=== PATIENT | female | born 1990 | race Caucasian/White ===

== ENCOUNTER → 2017-03-08 | Outpatient (CLI) | payer MEDICAID ==
[2017-03-08 14:26] LABS: CH 31.6; CHCM 34.5; HDW 2.35; HGB 12.8 gm/dL (11.4-16.0); MCHC 33.7 g/dL (31.0-37.0); MCV 92.2 fL (80.0-100.0); Mean Platelet Volume 6.9; RBC 4.12 m/uL (3.80-5.40); WBC 8.9 k/uL (3.8-10.6)
[2017-03-08 14:35] LABS: Glucose 84 mg/dL (74-99); Non-African American GFR(MDRD) >60 (>60 ml/min/1.73 sqM)
[2017-03-08 20:38] LABS: Treponemal Ab Non-Reactive (Non-Reactive)
[2017-03-09 05:01] LABS: Toxoplasma Antibody (IgG) <3.0 IU/mL (<7.2)
== END | disposition home or self-care (01) ==
LOC: LABWHC1 13:52
PROVIDERS: ATTEND Obstetrics & Gynecology
DX: O26.811 Pregnancy related exhaustion and fatigue, first trimester (principal); Z3A.00 Weeks of gestation of pregnancy not specified
CPT/HCPCS: 36415; 82565; 82947; 85027; 86762; 86777; 86778; 86780; 86850; 86900; 86901; 87340; 87390

== ENCOUNTER → 2017-07-04 | Outpatient (CLI) | payer MEDICAID ==
[2017-07-04 10:25] LABS: HCT 38.5 % (34.0-46.0); HGB 12.6 gm/dL (11.4-16.0); MCH 30.3 pg (25.0-35.0); MCHC 32.6 g/dL (31.0-37.0); Mean Platelet Volume 6.7; Platelet Count 287 k/uL (150-450); RBC 4.14 m/uL (3.80-5.40); WBC 12.4 k/uL (3.8-10.6)
== END | disposition home or self-care (01) ==
LOC: LABWHC1 08:52
PROVIDERS: ATTEND Obstetrics & Gynecology
DX: Z34.82 Encounter for supervision of other normal pregnancy, second trimester (principal); Z3A.00 Weeks of gestation of pregnancy not specified
CPT/HCPCS: 36415; 82950; 85027

== ENCOUNTER → 2017-08-15 | Outpatient (CLI) | payer MEDICAID ==
--- NOTE | 2017-08-15 09:33 | US ---
EXAMINATION TYPE: US OB anatomy transabd DATE OF EXAM: 08/15/2017 COMPARISON: US HISTORY: O36.63x0 Large for dates, third trimester TECHNIQUE: Transabdominal (TA) EXAM MEASUREMENTS: GESTATIONAL AGE / DATING Physician Established: (32 weeks/5 days) EDC: 10/05/2017 Dates by LMP: uncertain Dates by First Scan: (33 weeks/0 days) EDC: 10/03/2017 Dates by Current Scan for: (33 weeks/6 days) EDC: 09/27/2017 SURVEY IUP: Single PLACENTA: Posterior PREVIA: No previa JADE: 10.4 cm Normal CERVICAL LENGTH (transabdominal: norm > 3.0cm): 3.4 cm BIOMETRY PRESENTATION: Vertex BPD: 8.6 cm 31 weeks / 5 days HC: 30.4 cm 33 weeks / 5 days AC: 31.1 cm 35 weeks / 0 days FL: 6.6 cm 34 weeks / 0 days ESTIMATED WEIGHT IN GRAMS: 2460 grams ESTIMATED WEIGHT IN LBS/OZ: 5 lbs. 7 oz. WEIGHT PERCENTAGE BASED ON ESTABLISHED DATE: 91 % HC/AC: 0.98 Normal FL/AC: 21.2 Normal HEART RATE: 135 bpm RHYTHM: Normal ANATOMY SEEN (within normal limits): * Lateral Vent (< 1 cm) 0.8 cm * Cisterna Magna (< 1.1 cm) 0.8 cm * Cerebellum (varies with age) 3.9 cm Four Chamber Heart Outflow tracts: LVOT/RVOT Stomach Situs Nose / Lips Diaphragm Kidneys (bilateral) Bladder Three Vessel Cord Longitudinal Spine Transverse Spine Arms (bilateral) Legs (bilateral) ANATOMY NOT SEEN: * Nuchal Fold (< 0.6 cm) Choroid Plexus (bilateral) Midline Falx Cavus Septi Pellucidi Cord Insert growth according to dates, limited anatomy due to advanced gestational age and position. IMPRESSION: Single live intrauterine with a sonographic age of 33 weeks and 6 days with estimated date of delivery of 09/27/2017. Overall dates are concordant with menstrual age given the third trimester ul trasound. Growth is also appropriate according to dates and measured at 91%. Some anatomy was not juan c ntified due to advanced gestational age and positioning (nuchal fold, choroid plexus, midline f enmanuel, cavum septum lucidum, and cord insertion).
== END | disposition home or self-care (01) ==
LOC: RADUSWWP 08:39
PROVIDERS: ATTEND Obstetrics & Gynecology
DX: O36.63X0 Maternal care for excessive fetal growth, third trimester, not applicable or unspecified (principal); Z3A.33 33 weeks gestation of pregnancy
CPT/HCPCS: 76811

== ENCOUNTER 2017-09-19 12:05 | Outpatient (CLI) | payer MEDICAID ==
[2017-09-19 12:42] LABS: Appearance,Urine Clear (Clear); Bacteria,Urine Occasional /hpf; Bilirubin,Urine Negative (Negative); Blood,Urine Negative (Negative); Color,Urine Yellow; Glucose,Urine (UA) Negative (Negative); Ketones,Urine Negative (Negative); Leukocyte Esterase,Urine Small (Negative); Mucus,Urine Rare /hpf; Nitrite,Urine Negative (Negative); PH, Urine 7.5 (5.0-8.0); Protein,Urine Trace (Negative); Specific Gravity,Urine 1.015 (1.001-1.035); Squamous Epithelial Cell,Urine 3 /hpf (0-4); Urobilinogen,Urine <2.0 mg/dL (<2.0); WBC,Urine 2 /hpf (0-5)
[2017-09-19 12:54] LABS: ALT 27 U/L (9-52); AST 23 U/L (14-36); Albumin 3.4 g/dL (3.5-5.0); Alkaline Phosphatase 125 U/L (38-126); Bilirubin, Delta 0.4 mg/dL (0.0-0.2); Bilirubin,Unconjugated 0.1 mg/dL (0.0-1.1); Blood Urea Nitrogen 9 mg/dL (7-17); LDH 439 U/L (313-618); Total Bilirubin 0.5 mg/dL (0.2-1.3); Total Protein 5.9 g/dL (6.3-8.2); Uric Acid 3.8 mg/dL (3.7-7.4)
[2017-09-19 13:09] LABS: Basophils % (A) 0 %; Eosinophils # (A) 0.1 k/uL (0-0.7); Eosinophils % (A) 1 %; HCT 36.7 % (34.0-46.0); HGB 12.8 gm/dL (11.4-16.0); Lymphocytes # (A) 1.5 k/uL (1.0-4.8); Lymphocytes % (A) 12 %; MCHC 34.7 g/dL (31.0-37.0); MCV 89.1 fL (80.0-100.0); Monocytes # (A) 0.7 k/uL (0-1.0); Monocytes % (A) 5 %; Neutrophils # (A) 9.8 k/uL (1.3-7.7); Neutrophils % (A) 80 %; Platelet Count 292 k/uL (150-450); RBC 4.12 m/uL (3.80-5.40); WBC 12.2 k/uL (3.8-10.6)
--- NOTE | 2017-09-19 17:32 | P.PN ---
Progress Note - Text Progress Note Date: 09/19/17 Heather was sent over from my office with a pelvic blood pressure 146/82. She last week she was noted and slight elevation in blood pressure as well. Preeclamptic labs were ordered. She did check her blood pressure through the week and noted that it was normal. In labor and delivery all her blood pressures are normal in the 120/70 range. She has no elevations in blood pressure at all. Preeclamptic labs were all also normal. Trace protein only. She had a long discussion about options for care, I did explain recommendation for induction of labor as she is past 37 weeks and there is some suspicion for gestational hypertension although it is difficult to say for certain if she really has gestational hypertension since all of her other blood pressures of been normal other than those to random samples. It is also noted that the random samples were with the same cuff in my office and was every other cuff her blood pressures are significantly lower. At this time she declines induction of labor will be aggressively following her with NSTs and blood pressure checks every 2-3 days moving forward, I think this is probably a reasonable option since she is very knowledgeable in the area and understands both the risks and benefits of moving forward and not getting delivered today. I did do a physical exam and it is noted that her deep tendon reflexes are +2 out of 4 she denies any headache no epigastric pain no visual changes she really has no peripheral or central edema. There is no real sign or symptoms for preeclampsia at all and with the preponderance of her blood pressures being normal it is very difficult to say with any certainty that she does have gestational hypertension. Assessment intrauterine with isolated elevation blood pressure. Plan very close follow-up with blood pressures and NSTs in the next 2-3 days with the expectation that if there is any more elevations in her blood pressure that we will plan induction of labor.
== END 2017-09-19 13:27 | disposition home or self-care (01) ==
LOC: FBPOP 12:05
PROVIDERS: ATTEND Obstetrics & Gynecology
DX: O13.3 Gestational [pregnancy-induced] hypertension without significant proteinuria, third trimester (principal); Z3A.37 37 weeks gestation of pregnancy
CPT/HCPCS: 80076; 81001; 82565; 83615; 84520; 84550; 85025; 99215

== ENCOUNTER 2017-09-21 12:19 | Outpatient (CLI) | payer MEDICAID ==
[2017-09-21 13:32] VITALS: BP 117/82; PULSE 75; RESP 16; TEMP 98.4
--- NOTE | 2017-09-30 08:01 | P.MSEPDOC ---
Presenting Problems - Arrival Data Date of Arrival on Unit: 09/21/17 Time of Arrival on Unit: 12:28 Mode of Transport: Ambulatory - Complaint OB-Reason for Admission/Chief Complaint: Other Comment: pt asked to return to l/d today to have blood pressures checked a dn nst Medical History - Information : 1 Para: 0 Term: 0 : 0 Abortions: Spontaneous or Elective: 0 Number of Living Children: 0 - Gestational Age Gestational Age by DAVID (wks/days): 38 Weeks and 0 Days - History Complications: No Care Review of Systems - Review of Systems Constitutional: No problems Breast: No problems ENT: No problems Cardiovascular: No problems Respiratory: No problems Gastrointestinal: No problems Genitourinary: No problems Musculoskeletal: No problems Neurological: No problems Skin: No problems Vital Signs - Temperature Temperature: 98.4 F Temperature Source: Oral - Pulse Right Brachial Pulse Rate: 75 Pulse Assessment Method: Automatic Cuff - Respirations Respiratory Rate: 16 Oxygen Delivery Method: Room Air - Blood Pressure Right Arm Blood Pressure: 117/82 Blood Pressure Mean: 93 Blood Pressure Source: Automatic Cuff Medical Screen Scoring (Pre) - Cervical Exam Dilation: Exam Deferred Effacement: Exam Deferred Membranes: Intact - Uterine Contractions Frequency: > 5 minutes apart = 1, > or = 36 weeks =2 Duration: > 40 seconds = 2 Intensity: N/A - Maternal Vital Signs Maternal Temperature: N/A Maternal Blood Pressure: N/A Signs of Preeclampsia: N/A - Pain Assessment Pain Scale Used: Numeric (1 - 10) Pain Intensity: 0 Pain Management Goal: 0 Pain Behavior: Vocalization - Maternal Trauma Maternal Trauma: N/A - Assessment Baseline FHR: 130 Heart Rate - NICHD Category: Category I (Normal) = 0 NST: Reactive Position: N/A Station: N/A - Total Score Total Score (Pre): 5 Physician Notification (Pre) - Physician Notified Physician Notified Date: 09/21/17 Physician Notified Time: 13:20 Spoke With: dr bahman Aguilar Order Received: Yes - Notification Comment Comment: september d/c home Disposition - Disposition OB Disposition: Discharge to home Discharge Date: 09/21/17 Discharge Time: 13:30 I agree with the RN Medical Screening Exam: Yes Risk & Benefit of care provided described in d/c instruction: Yes Diagnosis: GESTATIONAL HTN W/O SIGNIFICANT PROTEINURIA, THIRD TRIMESTER
== END 2017-09-21 13:30 | disposition home or self-care (01) ==
LOC: FBPOP 12:19
PROVIDERS: ATTEND Obstetrics & Gynecology
DX: O13.3 Gestational [pregnancy-induced] hypertension without significant proteinuria, third trimester (principal); Z3A.38 38 weeks gestation of pregnancy
CPT/HCPCS: 59025

== ENCOUNTER 2017-09-22 05:00 | Inpatient (IN) | payer MEDICAID ==
--- NOTE | 2017-09-22 06:09 | P.HPOB ---
History of Present Illness H&P Date: 09/22/17 Chief Complaint: Active labor This is a 26 year female 1 para 0 with an estimated date of confinement of 10/05/2017, estimated gestational age of 38-0/7 weeks, who presents to labor and delivery with complaints of contractions that became stronger early this morning. She denies any rupture of membranes. care has been with Dr. Carvalho and has been uncomplicated per patient. labs: GC/chlamydia-negative Hepatitis B surface antigen-negative nonreactive HIV-nonreactive Rubella-indeterminate Syphilis antibody-negative nonreactive Random glucose-84 Hemoglobin-12.8 Toxoplasma-negative Blood type-A+ Antibody screen-negative Obstetrical ultrasound-normal anatomy One hour Glucola-100 Group B streptococcus-negative Obstetrical history: This is her first . Gynecologic history: No history of sexual transmitted diseases Social history: She is and works full-time in labor and delivery as an RN. Review of Systems Constitutional: Denies chills, Denies fever Eyes: denies blurred vision, denies pain Ears, nose, mouth and throat: Denies headache, Denies sore throat Cardiovascular: Denies chest pain, Denies shortness of breath Respiratory: Denies cough Gastrointestinal: Reports abdominal pain (Contractions) Genitourinary: Reports pelvic pain Musculoskeletal: Reports low back pain Integumentary: Denies pruritus, Denies rash Neurological: Denies numbness, Denies weakness Past Medical History Past Medical History: No Reported History History of Any Multi-Drug Resistant Organisms: None Reported Additional Past Surgical History / Comment(s): LASIK eye surgery, wisdom teeth Past Psychological History: No Psychological Hx Reported Smoking Status: Never smoker Past Drug Use History: None Reported - Past Family History Mother Family Medical History: Hypertension Medications and Allergies Home Medications Medication Instructions Recorded Confirmed Type Pnv No.95/Ferrous Fum/Folic AC 1 each PO DAILY 09/21/17 09/22/17 History [ Multivitamin Tablet] Allergies Allergy/AdvReac Type Severity Reaction Status Date / Time No Known Allergies Allergy Verified 09/22/17 05:08 Exam Osteopathic Statement: *. No significant issues noted on an osteopathic structural exam other than those noted in the History and Physical/Consult. - Vital Signs Vital signs: Intake and Output 09/21/17 09/21/17 09/22/17 14:59 22:59 06:59 Other: Weight 72.575 kg HEENT: Within normal limits Heart: Regular rate and rhythm Lungs: Clear to auscultation bilaterally Abdomen: Cervix on admission: 7 cm with bulging bag heart tones: Reactive Contractions: Every couple minutes Extremities: Negative Homans Assessment and Plan (1) 38 weeks gestation of Current Visit: Yes Status: Acute Code(s): Z3A.38 - 38 WEEKS GESTATION OF SNOMED Code(s): 70974512 Plan: Admission for active labor. Expectant management.
--- NOTE | 2017-09-22 06:11 | P.PROBDLV ---
Vaginal Delivery Note - . Vaginal Delivery Note: The patient progressed fairly quickly to complete dilation and began pushing. Spontaneous rupture membranes with clear fluid noted did occur during pushing. Infant's head came to a crown and then delivered across the perineum followed by the anterior shoulder and a left occiput anterior lie. Nose and mouth were bulb suctioned at the perineum. With one further push, the remainder the easily delivered and was placed on mother's abdomen. There was a loop of cord near the left shoulder but not around the neck. Infant was placed on mother's abdomen and cord was clamped and cut. A viable female infant was noted with scores of 9 at 1 minute and 10 at 5 minutes. Infant weight is pending at this time. Placenta delivered shortly thereafter, intact, with a three-vessel cord. Uterus did contract well after oxytocin was given and uterine massage was carried out. Inspection of the perineum revealed a small first-degree perineal laceration. This area was anesthetized with 1% lidocaine and then sutured with 3-0 Vicryl suture in a running locked fashion. She did have bilateral periurethral abrasions but these were noted to be hemostatic. Estimated blood loss is approximately 100 mL's. Both mother and infant are in stable condition.
[2017-09-22] MEDS ORDERED: TERBUTALINE 1 MG/ML VIAL SQ PRN (06:14)
[2017-09-22] MEDS ORDERED: LIDOCAINE 1% (PF) 10 MG/ML (30 ML SDV) SQ PRN (06:14)
[2017-09-22] MEDS ORDERED: OXYTOCIN 10 UNIT/ML 1 ML VIAL IM PRN (06:14)
[2017-09-22] MEDS ORDERED: METHYLERGONOVINE 0.2 MG/ML 1 ML AMP IM PRN (06:14)
[2017-09-22] MEDS ORDERED: CARBOPROST TROMETHAMINE 250 MCG/ML 1 ML AMP IM PRN (06:14)
[2017-09-22] MEDS ORDERED: LACTATED RINGERS 1,000 ML IV SCH (06:15)
[2017-09-22] MEDS ORDERED: ZOLPIDEM 5 MG TAB PO PRN (06:29)
[2017-09-22] MEDS ORDERED: IBUPROFEN 600 MG TAB PO PRN (06:29)
[2017-09-22] MEDS ORDERED: MEASLES-MUMPS-RUBELLA VACC/PF 12,500 UNIT/0.5 ML VIAL SQ ONE (06:29)
[2017-09-22] MEDS ORDERED: OXYTOCIN 20 UNITS/1000 ML NS 1,000 ML IV SCH (06:29)
[2017-09-22] MEDS ORDERED: WITCH HAZEL 1 EACH MED..PAD TOPICAL PRN (06:29)
[2017-09-22] MEDS ORDERED: diphenhydrAMINE 50 MG/ML 1 ML VIAL IVP PRN ×2 (06:29)
[2017-09-22] MEDS ORDERED: diphenhydrAMINE 50 MG CAP PO PRN (06:29)
[2017-09-22] MEDS ORDERED: SIMETHICONE 80 MG CHEWABLE PO PRN (06:29)
[2017-09-22] MEDS ORDERED: LANOLIN CREAM 5 GM TUBE TOPICAL PRN (06:29)
[2017-09-22] MEDS ORDERED: BENZOCAINE/MENTHOL SPRAY 1 GM/SPRAY AEROSOL TOPICAL PRN (06:29)
[2017-09-22] MEDS ORDERED: HYDROCORTISONE 2.5% RECTAL CREAM 30 GM TUBE RECTAL PRN (06:29)
[2017-09-22] MEDS ORDERED: diphenhydrAMINE 25 MG CAP PO PRN (06:29)
[2017-09-22] MEDS ORDERED: ACETAMINOPHEN TAB 325 MG TAB PO PRN (06:29)
[2017-09-22 07:45] VITALS: BMI 25.8
[2017-09-22 08:26] VITALS: RESP 16
[2017-09-22] MEDS: SENNOSIDES-DOCUSATE SODIUM 1 EACH TAB PO SCH ×2 (09:08→20:56)
--- NOTE | 2017-09-23 07:40 | P.DS ---
Providers Date of admission: 09/22/17 05:00 Expected date of discharge: 09/23/17 Attending physician: Vik Carvalho Primary care physician: Stated None - Discharge Diagnosis(es) (1) 38 weeks gestation of Current Visit: Yes Status: Acute Hospital Course: This is a 26 year old female 1 para 0 at 38 and one sevenths weeks who presented with active labor. She delivered vaginally a viable female on 09/22/2017 with scores of 9 at 1 minute and 10 at 5 minutes and infant weight of 6 pounds 12-1/2 ounces. Her course has been uncomplicated. She is breast-feeding without difficulty. Lochia is decreasing. Pain is well-controlled with ibuprofen. Vital signs are stable. Abdomen is soft with fundus firm and nontender. Extremities show negative Homans. Impression is status post vaginal delivery day #1. Plan is to discharge home today. Routine instructions are given. She will use [id number] ibuprofen as needed. She has a breast pump at home. She is advised to follow up with Dr. Carvalho in the office in 6 weeks. She is advised to call the office if she has any further questions or concerns prior to her appointment time. Procedures: Spontaneous vaginal delivery of a viable female infant on 09/22/2017 Patient Condition at Discharge: Stable Plan - Discharge Summary New Discharge Prescriptions: Continue Pnv No.95/Ferrous Fum/Folic AC [ Multivitamin Tablet] 1 each PO DAILY Discharge Medication List Pnv No.95/Ferrous Fum/Folic AC [ Multivitamin Tablet] 1 each PO DAILY [History] Follow up Appointment(s)/Referral(s): Vik Carvalho DO [Doctor of Osteopathic Medicine] - 6 Weeks Activity/Diet/Wound Care/Special Instructions: Instructions 1. Do not begin any exercise program for 3 weeks. 2. Do not resume sexual relations for 3 weeks or longer if uncomfortable. 3. You may take tub baths or showers at any time. 4. You may use tampons if desired after 3 weeks. 5. Keep the area of episiotomy (stitches) clean and dry. 6. If you are not nursing, wear a good fitting, supportive bra during the day and limit fluid intake for at least 1 week to prevent breast engorgement. 7. Call the office, [phone], within the next week to make appointment for your 6 week checkup if it has not already been made. 8. Report any of the following occurrences to the doctor promptly: a. Heavy, excessive bleeding b. Chills, fever c. Burning or frequency of urination d. Pain or redness and breasts if nursing e. Increasing pain or swelling in episiotomy (stitches). In addition to the above instructions, the following additional should be followed: 1. No heavy lifting or straining (exercising) until after 6 week checkup. 2. Keep abdominal incision clean and dry: You may wear a dressing if more comfortable. 3. Make office appointment for 10 days after going home or as instructed by her doctor. Discharge Disposition: HOME SELF-CARE
[2017-09-23 07:48] LABS: Basophils % (A) 0 %; Eosinophils # (A) 0.1 k/uL (0-0.7); Eosinophils % (A) 1 %; HCT 34.4 % (34.0-46.0); HGB 11.7 gm/dL (11.4-16.0); Lymphocytes # (A) 2.8 k/uL (1.0-4.8); Lymphocytes % (A) 24 %; MCH 30.5 pg (25.0-35.0); MCHC 33.9 g/dL (31.0-37.0); MCV 90.1 fL (80.0-100.0); Mean Platelet Volume 7.5; Monocytes # (A) 0.7 k/uL (0-1.0); Monocytes % (A) 6 %; Neutrophils # (A) 7.9 k/uL (1.3-7.7); Neutrophils % (A) 67 %; Platelet Count 267 k/uL (150-450); RBC 3.82 m/uL (3.80-5.40); RDW 13.3 % (11.5-15.5); WBC 11.7 k/uL (3.8-10.6)
[2017-09-23 08:05] VITALS: BP 128/78; PULSE 68; TEMP 97.7
[2017-09-23] MEDS: SENNOSIDES-DOCUSATE SODIUM 1 EACH TAB PO SCH (08:12)
== END 2017-09-23 11:24 | disposition home or self-care (01) | DRG 775 ==
LOC: 4FBP 05:00
PROVIDERS: ADMIT Obstetrics & Gynecology; ATTEND Obstetrics & Gynecology
PROC: 10E0XZZ Delivery of Products of Conception, External Approach (ICD-10-PCS; principal; 2017-09-22)
PROC: 0HQ9XZZ Repair Perineum Skin, External Approach (ICD-10-PCS; 2017-09-22)
DX: O70.0 First degree perineal laceration during delivery (principal); Z37.0 Single live birth; Z3A.38 38 weeks gestation of pregnancy; Z82.49 Family history of ischemic heart disease and other diseases of the circulatory system
CPT/HCPCS: 85025; 88307; 90707

== ENCOUNTER → 2018-09-20 | Outpatient (CLI) | payer MEDICAID ==
--- NOTE | 2018-09-20 11:01 | USB ---
Reason for exam: clinical finding. History: Family history of breast cancer in aunt at age 30. Physical Findings: Nurse Summary: Patient complains of right breast lump x 3 weeks, 1cm round nontender nodule right breast retroareolar (nurse mj). US Breast RT Right complete breast ultrasound includes all four quadrants, the retroareolar region and axilla. Finding demonstrates a 0.8 x 0.4 x 0.7cm hypoechoic lesion at 7 o'clock. Suspect a gulactocele. Monitoring recommended. These results were verbally communicated with the patient and result sheet given to the patient on 09/20/18. ASSESSMENT: Probably benign, BI-RAD 3 RECOMMENDATION: Ultrasound of the right breast in 6 months.
== END | disposition home or self-care (01) ==
LOC: RADUSWWP 09:39
PROVIDERS: ATTEND Obstetrics & Gynecology
DX: N63.10 Unspecified lump in the right breast, unspecified quadrant (principal)

== ENCOUNTER → 2019-05-16 | Outpatient (CLI) | payer MEDICAID ==
[2019-05-16 16:42] LABS: HCT 36.9 % (34.0-46.0); HGB 12.7 gm/dL (11.4-16.0); MCH 30.7 pg (25.0-35.0); MCHC 34.3 g/dL (31.0-37.0); MCV 89.4 fL (80.0-100.0); Mean Platelet Volume 6.9; Platelet Count 279 k/uL (150-450); RBC 4.13 m/uL (3.80-5.40); RDW 12.1 % (11.5-15.5); WBC 6.8 k/uL (3.8-10.6)
[2019-05-16 16:55] LABS: African American GFR (CKD) >90 (>60 ml/min/1.73 sqM); Glucose 109 mg/dL (74-99); Non-African American GFR(CKD) >90 (>60 ml/min/1.73 sqM)
[2019-05-17 00:14] LABS: Hepatitis B Surface Antigen Non-Reactive (Non-Reactive)
--- NOTE | 2019-05-17 11:08 | US ---
EXAMINATION TYPE: Transabdominal DATE OF EXAM: 05/16/2019 3:52 PM COMPARISON: NONE CLINICAL HISTORY: Z36 Confirm dates. Confirm Dates EXAM PERFORMED: Transabdominal (TA) EXAM MEASUREMENTS: GESTATIONAL AGE / DATING Physician Established: (9 weeks/3 days) EDC: 12/16/2019 Dates by LMP: (9 weeks/3 days) EDC: 12/16/2019 Dates by First Scan: No prior Dates by Current Scan for: (10 weeks/0 days) EDC: 12/12/2019 MATERNAL ANATOMY Uterus: 9.7 x 7.7 x 9.2 cm Right Ovary: 3.3 x 2.3 x 3.2 cm Left Ovary: 2.3 x 1.1 x 1.7 cm Post CDS / Adnexa: wnl Presence of free fluid: No Presence of corpus luteal cyst: Right Ovary= 2.0 x 1.3 x 2.3 cm Presence of subchorionic bleed: No GESTATION / SURVEY CRL: 3.2 cm (10 weeks/0 days) MSD: wnl Yolk Sac (normal less than 6mm): 3mm Heart Rate: 170 bpm Rhythm: Normal IUP: Viable IUP Nuchal Translucency 10-14wks (normal less than 3mm): 1mm Single, viable IUP, No abnormality visualized at this time IMPRESSION: Single viable intrauterine corresponding to an ultrasound age of 10 weeks 0 days with estim ated date of delivery 12/12/2019
[2019-05-19 04:28] LABS: Toxoplasma Antibody (IgG) <3.0 IU/mL (<7.2); Toxoplasma Antibody (IgM) <3.0 AU/mL (<8.0)
== END | disposition home or self-care (01) ==
LOC: RADUSWWP 15:38
PROVIDERS: ATTEND Obstetrics & Gynecology
DX: Z36.89 Encounter for other specified antenatal screening (principal); Z34.81 Encounter for supervision of other normal pregnancy, first trimester; Z3A.10 10 weeks gestation of pregnancy
CPT/HCPCS: 76801; 76813; 82565; 82947; 85027; 86762; 86777; 86778; 86780; 86850; 86900; 86901; 87340

== ENCOUNTER → 2019-09-15 | Outpatient (CLI) | payer MEDICAID ==
[2019-09-15 10:46] LABS: HCT 34.6 % (34.0-46.0); HGB 11.8 gm/dL (11.4-16.0); MCH 31.8 pg (25.0-35.0); MCV 93.4 fL (80.0-100.0); Platelet Count 235 k/uL (150-450); RBC 3.71 m/uL (3.80-5.40); RDW 13.1 % (11.5-15.5); WBC 9.7 k/uL (3.8-10.6)
== END | disposition home or self-care (01) ==
LOC: LABWHC1 09:33
PROVIDERS: ATTEND Obstetrics & Gynecology
DX: Z34.90 Encounter for supervision of normal pregnancy, unspecified, unspecified trimester (principal)
CPT/HCPCS: 36415; 82950; 85027

== ENCOUNTER → 2019-10-27 | Outpatient (CLI) | payer MEDICAID ==
--- NOTE | 2019-10-27 09:55 | US ---
EXAMINATION TYPE: US OB >= 14 wk fetus DATE OF EXAM: 10/27/2019 COMPARISON: 07/21/2019 CLINICAL HISTORY: 28-year-old female O36.63XO Large for dates 3rd trimesterLGA TECHNIQUE: Transabdominal (TA) FINDINGS: GESTATIONAL AGE / DATING Physician Established: (32 weeks/6 days) EDC: 12/16/2019 Dates by LMP: (32 weeks/6 days) EDC: 12/16/2019 Dates by First Scan: (32 weeks/2 days) EDC: 12/12/2019 Dates by Current Scan: (32 weeks/5 days) EDC: 12/17/2019 SURVEY IUP: Single PLACENTA: Posterior/Fundal PREVIA: No Previa JADE: 12.4 cm Normal CERVICAL LENGTH (transabdominal: norm > 3.0cm): 3.8 cm BIOMETRY PRESENTATION: Vertex LIE: Longitudinal BPD: 8.3 cm 33 weeks / 4 days HC: 29.6 cm 32 weeks / 5 days AC: 29.3 cm 33 weeks / 2 days FL: 6.4 cm 33 weeks / 0 days ESTIMATED WEIGHT IN GRAMS: 2126 grams ESTIMATED WEIGHT IN LBS/OZ: 4 lbs. 11 oz. WEIGHT PERCENTAGE BASED ON ESTABLISHED DATES: 49% HC/AC: 1.01 Normal FL/AC: 21.81 Normal HEART RATE: 139 bpm RHYTHM: Normal Sand System Operator notes: Viable single IUP measuring 32 weeks 5 days with a heart rate of 139bpm and an est imated delivery date of 12/17/2019. IMPRESSION: Single live intrauterine with the established gestational age of 32 weeks 6 days by LMP. Cu rrent ultrasound biometry is concordant (32 weeks 5 days) placing the child at the 49th percentile fo r weight.
== END | disposition home or self-care (01) ==
LOC: RADUSWWP 08:13
PROVIDERS: ATTEND Obstetrics & Gynecology
DX: O36.63X0 Maternal care for excessive fetal growth, third trimester, not applicable or unspecified (principal); Z3A.32 32 weeks gestation of pregnancy
CPT/HCPCS: 76805

== ENCOUNTER 2019-11-23 02:40 | Inpatient (IN) | payer MEDICAID ==
[2019-11-23] MEDS ORDERED: TERBUTALINE 1 MG/ML VIAL SQ PRN (02:52)
[2019-11-23] MEDS ORDERED: CARBOPROST TROMETHAMINE 250 MCG/ML 1 ML AMP IM PRN (02:52)
[2019-11-23] MEDS ORDERED: OXYTOCIN 10 UNIT/ML 1 ML VIAL IM PRN (02:52)
[2019-11-23] MEDS ORDERED: METHYLERGONOVINE 0.2 MG/ML 1 ML AMP IM PRN (02:52)
[2019-11-23] MEDS ORDERED: LIDOCAINE 0.5% (PF) 5 MG/ML (50 ML SDV) SQ PRN (02:52)
[2019-11-23] MEDS ORDERED: OXYTOCIN 30 UNITS/500 ML NS 30 UNIT in SALINE 1 500ML.BAG IV SCH (03:00)
[2019-11-23] MEDS ORDERED: AMPICILLIN 2,000 MG in SODIUM CHLORIDE 0.9% 100 ML IVPB ONE (03:00)
[2019-11-23] MEDS: LACTATED RINGERS 1,000 ML IV SCH ×3 (03:09→09:30)
[2019-11-23 03:18] LABS: Basophils % (A) 0 %; Eosinophils # (A) 0.1 k/uL (0-0.7); Eosinophils % (A) 1 %; HCT 38.6 % (34.0-46.0); HGB 12.6 gm/dL (11.4-16.0); Lymphocytes % (A) 17 %; MCH 30.3 pg (25.0-35.0); MCHC 32.7 g/dL (31.0-37.0); MCV 92.4 fL (80.0-100.0); Mean Platelet Volume 7.3; Monocytes % (A) 8 %; Neutrophils # (A) 8.5 k/uL (1.3-7.7); Neutrophils % (A) 72 %; Platelet Count 274 k/uL (150-450); RBC 4.17 m/uL (3.80-5.40); RDW 13.3 % (11.5-15.5); WBC 11.9 k/uL (3.8-10.6)
[2019-11-23] MEDS ORDERED: AMPICILLIN 1,000 MG in SODIUM CHLORIDE 0.9% 50 ML IVPB SCH (07:00)
[2019-11-23] MEDS ORDERED: ROPIVACAINE 5MG/ML 20ML VIAL ONE (07:02)
[2019-11-23] MEDS ORDERED: SODIUM CHLORIDE 0.9% 100 ML BAG ONE (07:02)
[2019-11-23] MEDS ORDERED: fentaNYL (PF) 50 MCG/ML 5 ML AMP ONE (07:02)
[2019-11-23] MEDS ORDERED: HYDROCORTISONE 2.5% RECTAL CREAM 30 GM TUBE RECTAL PRN (08:08)
[2019-11-23] MEDS ORDERED: LANOLIN CREAM 5 GM TUBE TOPICAL PRN (08:08)
[2019-11-23] MEDS ORDERED: BENZOCAINE/MENTHOL SPRAY 1 GM/SPRAY AEROSOL TOPICAL PRN (08:08)
[2019-11-23] MEDS ORDERED: diphenhydrAMINE 25 MG CAP PO PRN (08:08)
[2019-11-23] MEDS ORDERED: SIMETHICONE 80 MG CHEWABLE PO PRN (08:08)
[2019-11-23] MEDS ORDERED: ZOLPIDEM 5 MG TAB PO PRN (08:08)
[2019-11-23] MEDS ORDERED: diphenhydrAMINE 50 MG/ML 1 ML VIAL IVP PRN ×2 (08:08)
[2019-11-23] MEDS ORDERED: WITCH HAZEL 1 EACH MED..PAD TOPICAL PRN (08:08)
[2019-11-23] MEDS ORDERED: diphenhydrAMINE 50 MG CAP PO PRN (08:08)
[2019-11-23] MEDS ORDERED: ACETAMINOPHEN TAB 325 MG TAB PO PRN (08:08)
--- NOTE | 2019-11-23 08:10 | P.HPOB ---
History of Present Illness H&P Date: 11/23/19 Chief Complaint: Intrauterine 36 and 5 active labor Heather is a 28-year-old G3 to P1 at 36 weeks 5 days gestation who arrives in active labor with spontaneous rupture membranes and red to the hospital. Her course was unremarkable other than positive for group B streptococci's. She has had no problems or issues with the and is feeling well at this time. Pertinent labs include A+ blood type, Rh antibody was negative, rubella is immune, hepatitis B surface antigen was negative and previously stated group B strep was positive. We'll plan IV antibiotic prophylaxis for group B strep. At initial presentation she was dilated to 50% effaced and -3 station following 2 hours contractions she was then dilated to 4 and 90% effaced and epidural was ordered. A category 1 tracing is noted. Past Medical History Past Medical History: No Reported History History of Any Multi-Drug Resistant Organisms: None Reported Additional Past Surgical History / Comment(s): LASIK eye surgery, wisdom teeth Past Anesthesia/Blood Transfusion Reactions: No Reported Reaction Past Psychological History: No Psychological Hx Reported Smoking Status: Never smoker Past Alcohol Use History: None Reported Past Drug Use History: None Reported - Past Family History Mother Family Medical History: Hypertension Medications and Allergies Home Medications Medication Instructions Recorded Confirmed Type Pnv No.95/Ferrous Fum/Folic AC 1 each PO DAILY 09/21/17 11/23/19 History [ Multivitamin Tablet] Ferrous Sulfate, Dried [Iron] 65 mg PO DAILY 11/23/19 11/23/19 History Omeprazole [PriLOSEC] 20 mg PO AC-BRKFST 11/23/19 11/23/19 History Allergies Allergy/AdvReac Type Severity Reaction Status Date / Time No Known Allergies Allergy Verified 11/23/19 02:50 Exam Osteopathic Statement: *. No significant issues noted on an osteopathic structural exam other than those noted in the History and Physical/Consult. Vital Signs Temp Pulse Resp BP 11/23/19 02:53 97.6 F 82 16 128/82 Intake and Output 11/22/19 11/23/19 11/23/19 22:59 06:59 14:59 Other: # Voids 5 Weight 71.668 kg - OBG Physical Exam Breast: both: normal (no masses) Abdomen: bowel sounds normal, no diffuse tenderness, no bruit present, no guarding noted, no hepatomegaly, no splenomegaly, no mass Vulva: both: normal Vagina: normal moisture, no discharge Cervix: no lesion, no discharge Uterus: normal size, normal contour Adnexa: both: normal Anus/Rectum: normal perianal skin, no rectal mass, no hemorrhoids, heme negative Results Result Diagrams: 11/23/19 03:00 Abnormal Lab Results - Last 24 Hours (Table) 11/23/19 Range/Units 03:00 WBC 11.9 H (3.8-10.6) k/uL Neutrophils # 8.5 H (1.3-7.7) k/uL
--- NOTE | 2019-11-23 08:11 | P.PROBDLV ---
Vaginal Delivery Note - . Vaginal Delivery Note: Heather progressed complete and pushing with spontaneous vaginal delivery of a viable female over an intact perineum from left occiput anterior position. Fundal deliver the head a nuchal cord 1 was noted and the baby was delivered through this with gentle downward upper traction. Once this was completed mouth nares were bulb suctioned and baby was placed on mother's abdomen with the umbilical cord was allowed to pulsate for 45 seconds prior to clamping and cutting. Once this completed, nursery personnel was present and assumed care. Placenta was then delivered intact and Pitocin was added to the IV. Apgars were 9 and 9 at one and 5 minutes respectively and weight is pending. Both mother and baby over are stable following delivery.
[2019-11-23] MEDS ORDERED: OXYTOCIN 20 UNITS/1000 ML NS 1,000 ML IV SCH (08:15)
[2019-11-23] MEDS: IBUPROFEN 600 MG TAB PO PRN ×2 (12:47→19:25)
[2019-11-23] MEDS ORDERED: SENNOSIDES-DOCUSATE SODIUM 1 EACH TAB PO SCH (20:00)
[2019-11-23 20:22] VITALS: RESP 16
[2019-11-24] MEDS: IBUPROFEN 600 MG TAB PO PRN (03:27)
--- NOTE | 2019-11-24 06:24 | P.PNOBGVD ---
Subjective - Subjective Patient reports: Reports appetite normal, Reports voiding normally, Reports pain well controlled, Reports ambulating normally : doing well Objective - Latest Vital Signs Latest vital signs: Vital Signs Temp Pulse Resp BP Pulse Ox 11/24/19 00:16 98.0 F 86 16 106/77 93 L 11/23/19 20:00 97.7 F 68 16 112/72 99 11/23/19 16:00 98.2 F 69 18 128/82 97 11/23/19 10:35 80 18 107/58 11/23/19 09:49 79 16 104/55 11/23/19 09:19 74 18 108/54 11/23/19 08:49 76 18 106/56 11/23/19 08:35 86 18 111/56 11/23/19 08:15 83 18 116/56 11/23/19 08:05 97.0 F L 98 20 119/80 Intake and Output 11/23/19 11/23/19 11/24/19 14:59 22:59 06:59 Other: # Voids 2 - Exam Lungs: bilateral: normal Chest: Normal S1, Normal S2 Extremities: Present: normal Abdomen: Present: normal appearance, soft Uterus: Present: normal, firm Assessment and Plan Assessment: day #1. Patient is resting without complaints and wishes to go home. Vital signs are stable she is afebrile. Uterus is firm nontender she's having normal lochia. My impression this is a normal course. Plan is to continue routine care and discharge home later today. (1) Normal vaginal delivery Current Visit: Yes Status: Acute Code(s): O80 - ENCOUNTER FOR FULL-TERM UNCOMPLICATED DELIVERY SNOMED Code(s): 38956794
--- NOTE | 2019-11-24 06:27 | P.DS ---
Providers Date of admission: 11/23/19 02:46 Expected date of discharge: 11/24/19 Attending physician: Vik Carvalho Primary care physician: Stated None - Discharge Diagnosis(es) (1) Normal vaginal delivery Current Visit: Yes Status: Acute Hospital Course: Please see dictated H&P for intimate details of this patient's admission. Brief summary this is a pleasant 28-year-old 2 para 1 female 36-5/7 weeks gestation admitted to labor and delivery with spontaneous rupture membranes in active labor. Patient is given IV antibiotics for positive group B strep culture and subsequent was on have a vaginal delivery viable female infant. Please see dictated delivery note. day #1 patient without complaints she wishes to go home. Patient's felt to be stable for discharge home follow up Dr. Carvalho 6 weeks Procedures: Normal spontaneous vaginal delivery Patient Condition at Discharge: Good Plan - Discharge Summary New Discharge Prescriptions: No Action Pnv No.95/Ferrous Fum/Folic AC [ Multivitamin Tablet] 1 each PO DAILY Omeprazole [PriLOSEC] 20 mg PO AC-BRKFST Ferrous Sulfate, Dried [Iron] 65 mg PO DAILY Discharge Medication List Pnv No.95/Ferrous Fum/Folic AC [ Multivitamin Tablet] 1 each PO DAILY 09/21/17 [History] Ferrous Sulfate, Dried [Iron] 65 mg PO DAILY 11/23/19 [History] Omeprazole [PriLOSEC] 20 mg PO AC-BRKFST 11/23/19 [History] Follow up Appointment(s)/Referral(s): Vik Carvalho DO [Doctor of Osteopathic Medicine] - 1 Week Patient Instructions/Handouts: Vaginal Delivery (DC) Activity/Diet/Wound Care/Special Instructions: No intercourse or anything per vagina for 6 weeks. Please call if any fever, chills, excessive vaginal bleeding, and/or abdominal pain. Discharge Disposition: HOME SELF-CARE
[2019-11-24 06:43] LABS: Basophils % (A) 0 %; Eosinophils # (A) 0.2 k/uL (0-0.7); Eosinophils % (A) 2 %; HCT 37.6 % (34.0-46.0); HGB 12.6 gm/dL (11.4-16.0); Lymphocytes % (A) 17 %; MCH 32.2 pg (25.0-35.0); MCHC 33.6 g/dL (31.0-37.0); MCV 95.7 fL (80.0-100.0); Mean Platelet Volume 7.3; Monocytes # (A) 0.7 k/uL (0-1.0); Monocytes % (A) 6 %; Neutrophils # (A) 8.7 k/uL (1.3-7.7); Neutrophils % (A) 74 %; Platelet Count 252 k/uL (150-450); RBC 3.93 m/uL (3.80-5.40); RDW 13.5 % (11.5-15.5); WBC 11.7 k/uL (3.8-10.6)
[2019-11-24 08:23] VITALS: BP 117/79; PULSE 85; TEMP 98.4
== END 2019-11-24 09:30 | disposition home or self-care (01) | DRG 807 ==
LOC: FBPOP 02:40 → 4FBP 02:46
PROVIDERS: ADMIT Obstetrics & Gynecology; ATTEND Obstetrics & Gynecology
PROC: 10E0XZZ Delivery of Products of Conception, External Approach (ICD-10-PCS; principal; 2019-11-23)
DX: O69.81X0 Labor and delivery complicated by cord around neck, without compression, not applicable or unspecified (principal); Z37.0 Single live birth; O99.824 Streptococcus B carrier state complicating childbirth; Z3A.36 36 weeks gestation of pregnancy; Z79.899 Other long term (current) drug therapy; Z82.49 Family history of ischemic heart disease and other diseases of the circulatory system
CPT/HCPCS: 85025; 86850; 86900; 86901; 88307

== ENCOUNTER → 2021-12-27 | Outpatient (CLI) | payer MEDICAID, BC ==
[2021-12-27 18:06] LABS: HCT 39.8 % (37.2-46.3); HGB 13.1 g/dL (12.0-15.0); MCH 29.7 pg (27.0-32.0); MCHC 32.9 g/dL (32.0-37.0); MCV 90.2 fL (80.0-97.0); Mean Platelet Volume 9.8 fL (9.5-12.2); NRBC Per 100 WBC 0 /100 WBCS (0.0-0.0); Platelet Count 292 X 10*3/uL (140-440); RBC 4.41 X 10*6/uL (4.10-5.20); RDW 12.2 % (11.5-14.5); WBC 9.62 X 10*3/uL (4.50-10.00)
[2021-12-27 18:26] LABS: African American GFR (CKD) 140.8 (60.0-200.0); Non-African American GFR(CKD) 121.5 (60.0-200.0)
[2021-12-27 21:39] LABS: HIV 2 AB Non-Reactive (Non-Reactive); HIV AB P24 Non-Reactive (Non-Reactive); HIV P24 AG Non-Reactive (Non-Reactive)
[2021-12-27 22:12] LABS: Hepatitis B Surface Antigen Nonreactive (Nonreactive)
== END | disposition home or self-care (01) ==
LOC: LABWHC1 11:07
PROVIDERS: ATTEND Obstetrics & Gynecology
DX: Z34.81 Encounter for supervision of other normal pregnancy, first trimester (principal); Z3A.00 Weeks of gestation of pregnancy not specified
CPT/HCPCS: 36415; 82565; 82947; 85027; 86762; 86780; 86850; 86900; 86901; 87340; 87390

== ENCOUNTER → 2022-01-03 | Outpatient (CLI) | payer MEDICAID, BC ==
--- NOTE | 2022-01-04 11:01 | US ---
EXAMINATION TYPE: Transabdominal DATE OF EXAM: 01/03/2022 4:43 PM COMPARISON: NONE CLINICAL HISTORY: Z36.89 CONFIRM AGE AND VIABILITY. EXAM PERFORMED: Transabdominal (TA) EXAM MEASUREMENTS: GESTATIONAL AGE / DATING Physician Established: Not yet established Dates by LMP: LMP unknown Dates by First Scan: No previous this is first scan Dates by Current Scan for: (10 weeks/5 days) EDC: 3 MATERNAL ANATOMY Uterus: 13.0 x 6.2 x 9.8cm Right Ovary: obscured by overlying bowel gas/increased uterine size Left Ovary: obscured by overlying bowel gas/increased uterine size Post CDS / Adnexa: wnl Presence of free fluid: no Presence of corpus luteal cyst: no There appears to be 2 subchorionic bleeds, they appear complex and measure 2.5 x 1.5 x 1.5cm, and 2. 1 x 1.2 x 1.8cm GESTATION / SURVEY CRL: 3.7cm (10 weeks/5 days) Yolk Sac (normal less than 6mm): 4mm Heart Rate: 172 bpm Rhythm: Normal IUP: Viable IUP Age Appropriate Anatomy Cord Insertion: Visualized Limbs: Visualized Calvarium: Visualized Date of LMP: unknown IMPRESSION: 1. Single intrauterine gestation estimated at 10 weeks 5 days gestation based on crown-rump length. C ardiac activity measures 172 bpm. 2. May be two discrete subchorionic hemorrhages adjacent to the gestational sac.
== END | disposition home or self-care (01) ==
LOC: RADUSWWP 16:19
PROVIDERS: ATTEND Obstetrics & Gynecology
DX: Z36.89 Encounter for other specified antenatal screening (principal); Z3A.10 10 weeks gestation of pregnancy
CPT/HCPCS: 76801

== ENCOUNTER → 2022-03-06 | Outpatient (CLI) | payer MEDICAID, BC ==
--- NOTE | 2022-03-06 18:03 | US ---
EXAMINATION TYPE: US OB anatomy transabd DATE OF EXAM: 03/06/2022 COMPARISON: US HISTORY: O36.62X0 MATERNAL CARE FOR EXCESS GROWTH Anatomy. . TECHNIQUE: Transabdominal (TA) EXAM MEASUREMENTS: GESTATIONAL AGE / DATING Physician Established: (19 weeks/1 day) EDC: 07/30/2022 Dates by LMP: Unknown Dates by First Scan: (19 weeks/4 days) EDC: 07/27/2022 Dates by Current Scan for: (18 weeks/5 days) EDC: 08/02/2022 SURVEY IUP: Single PLACENTA: Anterior PREVIA: No previa JADE: 12.9 cm Normal CERVICAL LENGTH (transabdominal: norm > 3.0cm): 4.5 cm BIOMETRY PRESENTATION: Variable LIE: Variable BPD: 4.31 cm 19 weeks / 0 days HC: 15.75 cm 18 weeks / 4 days AC: 13.67 cm 19 weeks / 1 day FL: 2.85 cm 18 weeks / 5 days ESTIMATED WEIGHT IN GRAMS: 263.71 grams ESTIMATED WEIGHT IN LBS/OZ: 0 lbs. 9 oz. WEIGHT PERCENTAGE BASED ON ESTABLISHED DATE: % HC/AC: 1.15 Normal FL/AC: 20.83 HEART RATE: 131 bpm RHYTHM: Normal ANATOMY SEEN (within normal limits): * Lateral Vent (< 1 cm) 0.68 cm * Cisterna Magna (< 1.1 cm) 0.59 cm * Nuchal Fold (< 0.6 cm) 0.27 cm * Cerebellum (varies with age) 1.94 cm Choroid Plexus (bilateral) Midline Falx Cavus Septi Pellucidi Outflow tracts: LVOT/RVOT Stomach Situs Nose / Lips Diaphragm Kidneys (bilateral) Bladder Cord Insert Three Vessel Cord Longitudinal Spine Transverse Spine Arms (bilateral) Legs (bilateral) Female gender documented ANATOMY SEEN (does not appear within normal limits): Four Chamber Heart. There is an echogenic intracardiac focus. Scanned by two techs. IMPRESSION: Single viable intrauterine corresponding to an ultrasound age 18 weeks 5 days with estimate d date of delivery 08/02/2022 on today's exam. Echogenic intracardiac focus noted and is likely benign, correlate for maternal risk factors, consider follow-up as indicated.
== END | disposition home or self-care (01) ==
LOC: RADUSWWP 16:17
PROVIDERS: ATTEND Obstetrics & Gynecology
DX: O36.62X0 Maternal care for excessive fetal growth, second trimester, not applicable or unspecified (principal); Z3A.18 18 weeks gestation of pregnancy
CPT/HCPCS: 76811

== ENCOUNTER → 2022-04-29 | Outpatient (CLI) | payer BC, MEDICAID ==
[2022-04-29 18:13] LABS: MCH 30.5 pg (27.0-32.0); MCHC 33.3 g/dL (32.0-37.0); MCV 91.6 fL (80.0-97.0); Mean Platelet Volume 9.8 fL (9.5-12.2); NRBC Per 100 WBC 0 /100 WBCS (0.0-0.0); Platelet Count 261 X 10*3/uL (140-440); RBC 3.93 X 10*6/uL (4.10-5.20); WBC 10.06 X 10*3/uL (4.50-10.00)
== END | disposition home or self-care (01) ==
LOC: LABWHC1 08:33
PROVIDERS: ATTEND Obstetrics & Gynecology
DX: Z34.82 Encounter for supervision of other normal pregnancy, second trimester (principal); Z3A.00 Weeks of gestation of pregnancy not specified
CPT/HCPCS: 36415; 82950; 85027

== ENCOUNTER → 2022-05-08 | Outpatient (CLI) | payer BC, MEDICAID ==
--- NOTE | 2022-05-09 08:19 | US ---
EXAMINATION TYPE: US OB anatomy transabd DATE OF EXAM: 05/08/2022 COMPARISON: NONE HISTORY: O36.63X0 LARGE FOR DATES TECHNIQUE: Transabdominal (TA) EXAM MEASUREMENTS: GESTATIONAL AGE / DATING Physician Established: (28 weeks/1 days) EDC: 07-30-22 Dates by LMP: unknown Dates by First Scan: (28 weeks/ 4 days) EDC: 07-27-22 Dates by Current Scan for: (28 weeks/ 2 days) EDC: 07-29-21 SURVEY IUP: Single PLACENTA: Anterior PREVIA: No previa JADE: 11.2 cm CERVICAL LENGTH (transabdominal: norm > 3.0cm): 4.1 cm BIOMETRY PRESENTATION: Breech BPD: 7.0 cm 28 weeks / 2 days HC: 25.5 cm 27. weeks / 6 days AC: 25.1 cm 29 weeks / 2 days FL: 5.2 cm 27 weeks / 5 days ESTIMATED WEIGHT IN GRAMS: 1243 grams ESTIMATED WEIGHT IN LBS/OZ: 2 lbs. 12 oz. WEIGHT PERCENTAGE BASED ON ESTABLISHED DATE: 52 % HC/AC: 1.0 FL/AC: 21 HEART RATE: 133 bpm ANATOMY SEEN (within normal limits): Cavus Septi Pellucidi Four Chamber Heart Echogenic focus again seen Outflow tracts: LVOT/RVOT Stomach Situs Diaphragm Kidneys (bilateral) Bladder Cord Insert Three Vessel Cord Longitudinal Spine Transverse Spine Arms (bilateral) Legs (bilateral) ANATOMY NOT SEEN: due to position, head structures not well seen * Lateral Vent (< 1 cm) cm * Cisterna Magna (< 1.1 cm) cm * Nuchal Fold (< 0.6 cm) cm * Cerebellum (varies with age) cm Choroid Plexus (bilateral) Midline Falx Nose / Lips Head difficult to visualize due to position. IMPRESSION: 1. Single viable intrauterine . See above.
== END | disposition home or self-care (01) ==
LOC: RADUSWWP 16:11
PROVIDERS: ATTEND Obstetrics & Gynecology
DX: O36.63X0 Maternal care for excessive fetal growth, third trimester, not applicable or unspecified (principal); Z3A.28 28 weeks gestation of pregnancy
CPT/HCPCS: 76811

== ENCOUNTER → 2024-09-02 | Outpatient (CLI) | payer MEDICAID ==
[2024-09-02 10:10] VITALS: BP 135/84; PULSE 60; RESP 16; TEMP 98.1
--- NOTE | 2024-09-02 11:18 | P.HPOB ---
History of Present Illness H&P Date: 09/02/24 Chief Complaint: The patient is here for her routine gynecologic exam. This is a 33-year-old G3, P3 with an LMP of 08/13/2024. Patient is here to establish with this office. It has been about 2 years since her last gynecologic exam. She previously saw Dr. Domínguez for her gynecologic care. She has been using condoms for control. She has been experiencing premenstrual symptoms including moodiness, anxiousness and feeling short tempered. This seems to have been getting worse. It tends to improve shortly after the regular flow of her menstrual period. She has also noticed some spotting before her real menstrual flow starts. This can typically last 3 or 4 days followed by 3 days of menstrual flow. Her periods are monthly. Review of Systems The patient's weight has been stable over the last year. She denies respiratory, cardiac, or G.I. problems. 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 History of Any Multi-Drug Resistant Organisms: None Reported Additional Past Surgical History / Comment(s): LASIK eye surgery, wisdom teeth. Past Anesthesia/Blood Transfusion Reactions: No Reported Reaction Past Psychological History: Anxiety Additional Psychological History / Comment(s): PMS. Smoking Status: Never smoker Past Alcohol Use History: None Reported, Occasional (About 2 drinks per month.) Past Drug Use History: None Reported Additional History: She has been since 2014. 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 - Past Family History Mother Family Medical History: Hypertension, Osteoarthritis (OA) Father Family Medical History: Hyperlipidemia, Hypertension Additional Family Medical History / Comment(s): A paternal aunt had breast cancer. Medications and Allergies Home Medications Medication Instructions Recorded Confirmed Type Prasterone (Dhea)/Calcium Carb 2 tab PO DAILY 09/02/24 09/02/24 History [Dhea 10 mg Tablet] Vitamin D3/Vitamin K2 (Mk4) 2 tab PO DAILY 09/02/24 09/02/24 History [Vitamin K2 Plus D3 Tablet] Allergies Allergy/AdvReac Type Severity Reaction Status Date / Time No Known Allergies Allergy Verified 09/02/24 10:06 Exam Vital Signs Temp Pulse Resp BP Pulse Ox 09/02/24 10:07 98.1 F 60 16 135/84 99 Intake and Output 09/01/24 09/02/24 09/02/24 22:59 06:59 14:59 Other: Weight 68.946 kg Height 5 feet 6 inches, weight 152 pounds, BMI 24.5. This is a well-developed well-nourished white female who is alert and oriented times 3 in no acute distress. HEENT: Within normal limits. NECK: Supple without mass or thyromegaly. CHEST AND LUNGS: Clear to auscultation. HEART: Regular rate and rhythm. BREASTS: The patient has demonstrated a small lump inferior to the right nipple and is only palpable when the nipple is raised superiorly. The small lump measures approximately 8 x 8 mm and is nontender. She states it has been there for several years and has been evaluated by a general surgeon and it was felt to be benign. AXILLARY EXAM: Negative for adenopathy. BACK: Negative for CVA tenderness. ABDOMEN: Soft, nontender, without palpable masses. PELVIC EXAM: Normal external genitalia. Cervix and vagina appear normal. Cervix is multiparous and there is a mild ectropion noted. There is no unusual discharge. There is no evidence of prolapse. The uterus is slightly retroverted, nongravid size and nontender. There are no palpable adnexal masses or tenderness. RECTAL EXAM: negative for mass or tendernessd. EXTREMITIES: Nontender. IMPRESSION: 1. 33-year-old female using condoms for control, with normal gynecologic exam. 2. Premenstrual spotting and worsening PMS symptoms. PLAN: 1. Pap smear cotest was performed. 2. Self breast awareness was discussed with the patient. We have also discussed symptoms associated with inflammatory breast cancer. 3. Osteoporosis prevention was discussed. I have stressed the importance of adequate calcium, vitamin D and regular exercise. Recommended amounts of calcium and vitamin D were also discussed. 4. We have had a long discussion regarding her PMS symptoms as well as a few days of spotting that leads into her regular menstrual flow. This may be related to relatively low levels of progesterone for the end of the luteal phase. We have discussed options such as conservative management as well as SSRI medications. She states she tried Zoloft and this made her feel like a "zombie". She would like to have a trial of oral contraception since she is not interested in attempting in the immediate future. She has taken Sprintec in the past many years ago without problems. A prescription for Sprintec will be sent to [facility] in [facility]. She will start this on the Sunday following the onset of her normal menstrual flow. She was instructed to continue using condoms at least through the first pack of pills. Discussed possible side effects as well as possible risks including increased risk for blood clots, DVT, and PE. Questions were answered. She will also check her own blood pressure weekly during the first pack of pills. Regarding her PMS symptoms, I have also stressed the importance of good nutrition, adequate rest, and regular exercise. 5. She was advised to return in one year for her annual well woman exam and as needed.
== END ==
LOC: WWCWWP 09:54
PROVIDERS: ATTEND Obstetrics & Gynecology
DX: Z01.419 Encounter for gynecological examination (general) (routine) without abnormal findings (principal)